=== PATIENT | female | born 1995 | race Caucasian/White ===

== ENCOUNTER → 2017-06-28 | Outpatient (REF) ==
[~2017-06-28] MED LIST: ALEVE; ALLEGRA30 MG PO; AMITRIPTYLINE H10 M1 PO; CETIRIZINE; FLEXERIL 1010 MG/TAB PO; MULTIPLE VITAMI1 CAP PO; NORCO 325 MG-51 TAB PO; PREDNISONE20 MG PO; TYLENOL #3 301 UDTAB PO
== END ==
LOC: WSOH 14:02
DX: Z02.89 Encounter for other administrative examinations (principal)

== ENCOUNTER → 2020-11-21 | Outpatient (CLI) | payer OTHER ==
[~2020-11-21] MED LIST changes: +MELATONIN5 M1 SL; +MOTRIN 800800 MG/TAB PO
== END ==
LOC: COL.RAD 07:07
DX: D35.2 Benign neoplasm of pituitary gland (principal)
CPT/HCPCS: A9585